=== PATIENT | female | born 1990 | race Caucasian/White ===

== ENCOUNTER 2016-12-22 09:39 | Emergency (ER) | payer OTHER ==
--- NOTE | ~2016-12-22 | CR63 ---
[facility]. [facility] A Service of [facility] & [facility] / [facility] RADIOLOGY TEXT RESULTS PATIENT: JOSE LONDON LOCATION: SED : [birth year] UNIT #: [id number] AGE: [address]: Morgan Dickens MD SEX: F ORDER DR: [id number] [address] [address] [id number] E MR#: [id number] Acc #: [id number] NAME: JOSE LONDON : 1990 SEX: F STUDY DATE/TIME: 12/22/2016 9:17 UNIT: SED ROOM: STUDY DESCRIPTION: CR Chest 2 View Attending Physician: Morgan Dickens M.D. Ordering Physician: Morgan Dickens M.D. Primary Care Physician: Eric Cueto D.O. MEDICAL IMAGING REPORT This report is preliminary unless electronic signature is present. EXAM PA and lateral chest INDICATIONS Cough for 3 days. Comparison 06/14/2007 FINDINGS There is no acute-appearing infiltrate. Heart size is normal. Visualized osseous structures are unremarkable. IMPRESSION No active disease. Dictated by... Andres Beach M.D. THIS IS AN ELECTRONICALLY VERIFIED REPORT Andres Beach M.D. at 12/22/2016 5:00 PM Nabila TD: 12/22/2016 10:57 JOB #: [id number] MEDICAL IMAGING REPORT Page 1 of 1
[2016-12-22 09:06] LABS: INFLUENZA A NEG (NEG); INFLUENZA B NEG (NEG)
[~2016-12-22 09:39] MED LIST: ADVAIR; ADVAIR 250-501 EACH IH; ADVAIR 2501 DISK W/D PO; ADVAIR INH; ALBUTEROL17 GM; ALBUTEROL17 GM INH; AMOXICILLIN PO; AMOXICILLIN500 M1 PO; AMOXICILLIN875 MG PO; BACITRACIN30 GM TOP; BACTRIM DS TABL1 TA1 PO; BACTRIM DS TABL1 TAB PO; BENADRYL PO; CIPRO PO; DICLOFENAC PO; DOC-Q-LACE100 MG PO; FAMOTIDINE PO; FLEXERIL PO; FLEXERIL10 M1 PO; FLEXERIL10 MG PO; IBUPROFEN PO; IBUPROFEN600 MG PO; ILOTYCIN1 GM OD; IRON PILL PO; MAGIC MOUTHWASH; MOTRIN; MOTRIN600 MG; NAPROSYN-EC500 M1 PO; NAPROSYN500 MG PO; NO MEDICATIONS; OXYCODONE W-APA1 CAP PO; PENICILLIN V P500 MG PO; PHENERGAN25 M1 PO; PREDNISONE PO; PRENATAL1 TA1 PO; ROBAXIN 750750 M1 PO; TYLENOL #3 PO; VICODIN PO; VOLTAREN75 MG PO; ZYRTEC-D TABLE1 EACH PO
== END 2016-12-22 09:54 | disposition home or self-care (01) ==
LOC: SED 09:39
PROVIDERS: Emergency Medicine
DX: O99.511 Diseases of the respiratory system complicating pregnancy, first trimester (principal); J41.8 Mixed simple and mucopurulent chronic bronchitis; J01.00 Acute maxillary sinusitis, unspecified; J01.20 Acute ethmoidal sinusitis, unspecified; O99.341 Other mental disorders complicating pregnancy, first trimester; F41.9 Anxiety disorder, unspecified; Z87.891 Personal history of nicotine dependence; Z98.890 Other specified postprocedural states
CPT/HCPCS: 71020; 87651; 87804; 94640; 99284

== ENCOUNTER 2017-05-03 22:25 | Emergency (ER) | payer OTHER ==
[~2017-05-03] VITALS: Ht 170.2 cm; Wt 94.8 kg
--- NOTE | ~2017-05-03 | CR117 ---
[facility] A Service of [facility] & [facility] RADIOLOGY TEXT RESULTS PATIENT: JOSE LONDON LOCATION: SED : [birth year] UNIT #: [id number] AGE: [address]: MEHNAZ ZABALA SEX: F ORDER DR: [id number] [place] [id number] E MR#: [id number] Acc #: [id number] NAME: JOSE LONDON : 1990 SEX: F STUDY DATE/TIME: 05/03/2017 23:12 UNIT: SED ROOM: STUDY DESCRIPTION: CR Finger 2 View Thumb Rt Attending Physician: Mehnaz Zabala Aprn Ordering Physician: Mehnaz Zabala Aprn Primary Care Physician: Eric Cueto D.O. MEDICAL IMAGING REPORT This report is preliminary unless electronic signature is present. EXAM Right thumb, 05/03/2017. HISTORY 26-year-old female in the ED with dog bite wounds to right thumb earlier today. TECHNIQUE Two-view right thumb series. FINDINGS Examination is negative. No visible radiopaque soft tissue foreign body. No fracture or other acute osseous abnormality. IMPRESSION Negative right thumb. Dictated by... Alek Blanco M.D. THIS IS AN ELECTRONICALLY VERIFIED REPORT Alek Blanco M.D. at 05/04/2017 5:05 PM STEFANIE/denise TD: 05/04/2017 09:14 JOB #: [id number] MEDICAL IMAGING REPORT Page 1 of 1
[2017-05-03] MEDS ORDERED: ALBUTEROL17 GM (22:34)
== END 2017-05-04 00:28 | disposition home or self-care (01) ==
LOC: SED 22:25
DX: S61.051A Open bite of right thumb without damage to nail, initial encounter (principal); E11.9 Type 2 diabetes mellitus without complications; J45.909 Unspecified asthma, uncomplicated; F17.210 Nicotine dependence, cigarettes, uncomplicated; Z23 Encounter for immunization; W54.0XXA Bitten by dog, initial encounter; Y92.89 Other specified places as the place of occurrence of the external cause
CPT/HCPCS: 73140; 90471; 90715; 99283